=== PATIENT | female | born 1965 | race Caucasian/White ===

== ENCOUNTER 2025-04-05 12:59 | Outpatient (AMB) | payer OTHER, SELFPAY ==
--- NOTE | 2025-04-05 13:01 | MHC.PC.OV ---
Vital Signs 04/05/25 13:21 04/05/25 13:43 Height 5 ft 2 in Weight 142 lb 8 oz BMI 26.1 BP 139/80 130/84 Blood Pressure Location Rt brachial Lt brachial Position Sitting Sitting Respiration 16 Pulse 74 Pulse Source Pulse Oximeter Temp 98.7 F Temp Source Oral Pulse Oximetry (%) 98 Oxygen Delivery Method Room Air Intake Visit Reasons: est care/asthma Intake Note: patient here for new patient visit Pension Consultant Required: No Is last menstrual period known: No Post menopausal: No Patient : No Allergies sloan Allergy (Severe, Verified 04/05/25 13:34) Anaphylaxis MSG Allergy (Severe, Uncoded 04/05/25 13:34) Anaphylaxis Medication List - Last Reconciled 04/05/25 by Molly Zelaya CNP fluticasone furoate-vilanterol 100-25 mcg/dose (Breo Ellipta) 1 ea inhalation DAILY loratadine (Allergy Relief (loratadine)) 10 mg PO DAILY sertraline mg PO Tobacco use date assessed: 04/05/25 Dental Screening Dental Screen Date: 04/05/25 Did you have a dental visit in the last 12 months?: Yes Did you have a dental problem in the last 6 months where you did not have access to dental care?: No Was dental information given to patient?: Patient has dentist HPI HPI Comments History of Present Illness Details 59-year-old female presents to establish care. Prior PCP? - Dr. Martin, [facility], [place], [place] Last office visit/CPE/labs - 1.5 year ago Acute issue(s) - Anxiety, depression: Reports well controlled anxiety and depression. History of psychotherapy. Not currently followed by a therapist or psychiatrist - Myopia: She wears prescription glasses Past Medical History - Asthma, myopia, seasonal allergies, kidney stones, anxiety, depression Surgical History - Right ankle repair, right shoulder repair Family History - Dad: Hypertension, hyperlipidemia, cardiovascular disease, alcohol abuse - Mom: Breast cancer Social History - Nonsmoker. Does not vape. Drinks occasionally. Occasional cannabis gummy - Has been making healthy dietary choices. Walks frequently. Generally sleep well Health maintenance - Last eye exam was within the past years. She will sign a release for her PCP obtain her ophthalmology record - Last dental visit was less than a month ago - Last tetanus vaccine was in 2020. Record not available at this time - She notes that she is up-to-date on the shingles and pneumonia vaccines. Record not available at this time - Last pap smear test was in 2019: normal. Referred to [facility] investigator operator for a pap smear test - Last mammogram was in 2019: normal. Mammogram ordered - Last colonoscopy was a year and half ago at [facility]: Normal. Will request her recent colonoscopy record for review. Specialists - Dr. Cisneros, [facility] pulmonology [facility] Medical History (Updated 04/05/25 @ 14:08 by Molly Zelaya CNP) Depression Kidney stones Asthma Surgical History History of ankle surgery History of shoulder surgery Family History (Updated 04/05/25 @ 13:30 by Bekah Tinsley MA) Father Alcohol abuse High blood pressure High cholesterol Cardiovascular disease Mother Breast cancer Sister Asthma Social History (Updated 04/05/25 @ 13:20 by Bekah Tinsley MA) Housing: House Patient Tobacco Use Status: Never used Tobacco e-Cigarette/Vaping Use: Never Used Second Hand Smoke Exposure: No Substance Use Type: Marijuana service: No Current occupational status: employed 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 1. Little interest or pleasure in doing things: not at all 2. Feeling down, depressed, or hopeless: not at all 3. Trouble falling or staying asleep, or sleeping too much: not at all 4. Feeling tired or having little energy: not at all 5. Poor appetite or overeating: several days 6. Feeling bad about yourself - or that you are a failure or have let yourself or your family down: not at all 7. Trouble concentrating on things, such as reading the newspaper or watching television: not at all 8. Moving or speaking so slowly that other people could have noticed. Or the opposite - being so fidgety or restless that you have been moving around a lot more than usual: not at all 9. Thoughts that you would be better off or of hurting yourself in some way: not at all Total score: 1 Depression Screening Interpretation: Negative Depression Screening Done: Yes 93656 - PHQ-9 Billing: Yes Source: Developed by Khushbu Watson Kurt Kroenke and colleagues, with an educational junior from [employer]. Thrive Questionnaire Date Thrive assessed: 04/05/25 I am a: Patient What is your living situation today?: I have a steady place to live Within the past 12 months, did the food you bought not last and you didn't have the money to get more?: Never true Within the past 12 months, did you worry whether your food would run out before you got money to buy more?: Never true Do you have trouble paying for medicines?: No Do you have trouble getting transportation to medical appointments?: No Do you have trouble paying your heating and electricity bill?: No Do you have trouble taking care of your child, family member or friend?: No Do you have trouble with day-to-day activities such as bathing, preparing meals, shopping, managing finances, etc.?: No Are you currently unemployed and looking for a job?: No Are you interested in more education?: No Please select the resources that you would like help with: None Currently or been in a relationship where the following occur: No concerns reported THRIVE Score: 0 AUDIT C Alcohol Use Questionnaire (AUDIT-C) 1. How often do you have a drink containing alcohol?: Never 3. How often do you have six or more drinks on one occasion?: Never Total Score: 0 Score Reviewed/Action Taken: No ISMAEL-7 AMB Questionnaire ISMAEL-7 Date ISMAEL - 7 assessed: 04/05/25 Feeling nervous, anxious, or on edge: 0 = Not at all Not being able to stop or control worryin = Not at all Worrying too much about different things: 0 = Not at all Trouble relaxin = Not at all Being so restless that it is hard to sit still: 0 = Not at all Becoming easily annoyed or irritable: 0 = Not at all Feeling afraid as if something awful might happen: 0 = Not at all Total ISMAEL-7 score (0-4 normal; 5-9 mild; 10-14 moderate; 15-21 severe): 0 Source: Developed by Khushbu Watson Kurt Kroenke and colleagues, with an educational junior from [employer]. ISMAEL-7 Assessment Billing ISMAEL-7 Assessment Tool: ISMAEL-7 Assessment 31475 ACT Questionnaire In the past 4 weeks, how much of the time did your asthma keep you from getting as much done at work, school or at home?: A little of the time During the past 4 weeks, how often have you had shortness of breath?: Not at all During the past 4 weeks, how often did your asthma symptoms wake you up at night or earlier than usual in the morning?: Not at all During the past 4 weeks, how often have you had to use your rescue inhaler or nebulizer medication?: Not at all How would you rate your asthma control during the past 4 weeks?: Completely controlled ACT Interpretation: Negative Score: 24 Review of Systems Const Details: Denies chills, Denies fatigue, Denies fever(s), Denies headache(s) and Denies weakness HEENT Denies change in vision, Denies dizziness, Denies headache(s), Denies hearing loss, Denies nasal congestion, Denies sinus pain, Denies sinus pressure and Denies sore throat Card Denies chest pain, Denies lightheadedness, Denies dyspnea and Denies other (palpitations) Resp Denies cough, Denies dyspnea and Denies wheezing GI Denies abdominal pain, Denies melena, Denies hematochezia, Denies change in bowel habits, Denies dyspepsia and Denies nausea Denies hematuria and Denies dysuria Musc Denies abnormal gait, Denies myalgias, Denies arthralgias, Denies numbness and Denies tingling Skin/Breast Denies rash, Denies unusual bruising and Denies wounds Neuro Denies abnormal gait, Denies dizziness, Denies headache(s), Denies memory loss, Denies numbness, Denies Sensory deficit (Neuro), Denies tingling and Denies weakness Psych Denies anxiety, Denies depression and Denies memory loss Endo Denies cold intolerance, Denies fatigue, Denies heat intolerance, Denies polydipsia and Denies polyuria Amandeep/Lymph Denies easy bleeding and Denies easy bruising Aller/Immun Denies wheezing Physical exam (Primary Care) Vital Signs: Last Vital Signs Temp 98.7 F 04/05/25 13:21 Pulse 74 04/05/25 13:21 Resp 16 04/05/25 13:21 BP 130/84 04/05/25 13:43 Pulse Ox 98 04/05/25 13:21 Oxygen Delivery Method Room Air 04/05/25 13:21 BMI result Body Mass Index 26.1 Tobacco/Smoking Status: Tobacco use Status Tobacco use date assessed 04/05/25 04/05/25 13:30 Patient Tobacco Use Status Never used Tobacco 04/05/25 13:30 e-Cigarette/Vaping Use Never Used 04/05/25 13:30 PHQ-9: PHQ-9 Score PHQ-9: Total score 1 04/05/25 13:39 Depression Screening Interpretation: Negative Thrive Assessment: Date of Thrive Assessment Date Thrive assessed 04/05/25 04/05/25 13:02 Currently or been in a relationship where the following occur: No concerns reported Const Other: General: no acute distress, well developed, alert and awake Nutritional Appearance: well nourished Orientation/consciousness: patient oriented x3 HENMT Head: Yes normocephalic and Yes atraumatic Ears: hearing grossly normal bilaterally and TM's normal bilaterally General nose exam: Normal external nose present and Normal nares present Mouth: Normal oral and palatal mucosa present and moist mucous membranes Teeth and gingiva: dentition normal Throat: Yes oropharynx normal Eyes Pupils: Equal, round and reactive pupils present and Pupil accommodation reflex normal EOM: EOMs intact bilaterally Neck Neck: Yes normal visual inspection, Yes no lymphadenopathy and Yes trachea midline Thyroid: Thyroid normal Carotids: no bruits Lymphatic: no lymphadenopathy noted Chest Chest palpation & inspection: normal inspection of the chest Resp Effort & Inspection: normal respiratory effort Auscultation: clear to auscultation bilaterally Cardio Rate: regular rate Rhythm: regular rhythm Heart sounds: S1 normal heart sound present, S2 normal heart sound present, no gallops, no murmurs and no rubs Bruits: no abdominal aortic bruits and no carotid bruits GI Palpation (GI): No Abdominal aortic bruit present, Soft to palpation, nontender, No hepatosplenomegaly present and No Rebound tenderness present Auscultation: normal bowel sounds General: Yes no CVA tenderness Back/Spine/Pelvis Back: no CVA tenderness Cervical Spine: cervical ROM normal and No Cervical spine tenderness Thoracic/Lumbar Spine: thoraco-lumbar ROM normal, No pain with thoraco-lumbar ROM, No thoracic spinal tenderness and No lumbar spinal tenderness Skin General: warm and dry. Normal skin color. Normal skin turgor Lesions: no lesions Rashes: no rashes Trauma: no lacerations or abrasions Wounds: no wounds Nails: normal Neuro General: patient oriented x3, gait normal and CN's II-XI intact bilaterally Cranial nerves: Yes Equal, round and reactive pupils present Cognition (Neuro): normal cognition Gait exam (Neuro): Normal gait present Motor exam (neuro): 5/5 motor strength present throughout Sensory Exam: No Sensory deficit (Neuro) Deep tendon reflexes (DTR's): Right patellar reflex intensity grade: 2+ and Left patellar reflex intensity grade: 2+ Extrem General: Yes normal to inspection, No edema and No calf tenderness Psych Appearance: grossly normal Affect: normal affect Attitude: cooperative Thought process: Normal thought process present Coding Level of Care Code New Pt Prev Care >65yr (77206) Diagnoses Normal physical examination, routine Z00.00 Asthma J45.909 Anxiety and depression F41.9; F32.A Pap smear for cervical cancer screening Z12.4 Laboratory tests ordered as part of a complete physical exam (CPE) Z00.00 Additional Codes Asthma Control Questionnaire - ACT Interpretation: Negative ([id number]) ISMAEL-7 Assessment Billing - ISMAEL-7 Assessment Tool: ISMAEL-7 Assessment 99159 ([id number]) PHQ-9 - 14091 - PHQ-9 Billing: Yes ([id number]) Assessment & Plan Assessment & Plan (1) Normal physical examination, routine: Code(s): Z00.00 - Encounter for general adult medical examination without abnormal findings Category: Medical Plan: No significant functional limitation noted. Continue current treatment regimen. Healthy diet and routine exercise encouraged. Perform lab work and follow-up for telehealth visit for labs review in 2-3 weeks. Return sooner with symptoms or concerns. Verbalized understanding and agreed with the plan. (2) Asthma: Code(s): J45.909 - Unspecified asthma, uncomplicated Category: Medical Plan: Well-controlled asthma. ACT score is 24. Continue current treatment regimen. Follow-up with pulmonology as planned. (3) Anxiety and depression: Code(s): F41.9 - Anxiety disorder, unspecified; F32.A - Depression, unspecified Category: Medical Plan: Controlled anxiety and depressive symptoms. Continue to take sertraline 100 mg daily as prescribed. Routine exercise encouraged. Follow-up with symptoms or concerns. Verbalized understanding and agreed with the plan. (4) Pap smear for cervical cancer screening: Code(s): Z12.4 - Encounter for screening for malignant neoplasm of cervix Category: Medical Plan: Last pap smear test was in 2019: normal. Referred to [facility] investigator operator for a pap smear test. (5) Laboratory tests ordered as part of a complete physical exam (CPE): Code(s): Z00.00 - Encounter for general adult medical examination without abnormal findings Category: Medical Plan: Fasting labs ordered as part of a complete physical exam. Advised to fast for at least 10 hours before getting labs drawn. May drink water Verbalized understanding and agreed with treatment plan. Orders: Orders Complete Blood Count Auto Diff Today Z00.00 - Encounter for general adult medical examination without abnormal findings Lipid Panel Today Z00.00 - Encounter for general adult medical examination without abnormal findings TSH reflex Free T4 Today Z00.00 - Encounter for general adult medical examination without abnormal findings UA CC w/rflx Micro + Cult Today Z00.00 - Encounter for general adult medical examination without abnormal findings Vitamin D 25-OH Total Today Z00.00 - Encounter for general adult medical examination without abnormal findings Comprehensive [place]. Panel Fast Today Z00.00 - Encounter for general adult medical examination without abnormal findings Microalbumin, Random (w Creat) Today Z00.00 - Encounter for general adult medical examination without abnormal findings MM screening mammo BI Today Z12.31 - Encounter for screening mammogram for malignant neoplasm of breast Referrals [facility] [place] Referral Z12.4 - Encounter for screening for malignant neoplasm of cervix
[2025-04-05 13:21] VITALS: BP 139/80; PULSE 74; RESP 16; TEMP 37.1; O2SAT 98; BMI 26.1
[2025-04-05 13:43] VITALS: BP 130/84
--- OUTSIDE RECORDS SUMMARY | 2025-04-05 14:20 | XMS_ITS | Clinical Summary ---
Author Organization [facility] ity Address [address] [place] [address] Care Team Providers Care Outside Event Sales Specialist Name Role Phone Juan Ramon Nath MD Primary Care Provider [phone] Social History Tobacco Use Types Packs/Day Years Used Date Smoking Tobacco: Never Assessed Comments Unknown Sex and Gender Information Value Date Recorded Sex Assigned at Not on file Legal Sex Female 10:45 AM EST Gender Identity Not on file Sexual Orientation Not on file Plan of Treatment Health Maintenance Due Date Last Done Comments Breast Cancer Screening 1965 DTaP,Tdap,and Td Vaccines (1 - Tdap) 1982 Cervical Cancer Screening: P ap Smear 1984 Pneumococcal Vaccine: 50+ Ye ars (1 of 1 - PCV) 2013 Zoster Vaccines (1 of 2) 2013 COVID-19 Vaccine ( - 2023-2 5 season) 2024 Influenza Vaccine (Season Ended) 2025 RSV Immunization Adult Patie nts (1 - 1-dose 75+ series) 2038 HIB Vaccines Aged Out No longer eligi ble based on patient's age to complete this topic HPV Vaccines Aged Out No longer eligi ble based on patient's age to complete this topic Hepatitis A Vaccines Aged Out No long er eligible based on patient's age to complete this topic Hepatitis B Vaccines Aged Out No long er eligible based on patient's age to complete this topic IPV Vaccines Aged Out No longer eligi ble based on patient's age to complete this topic MMR Vaccines Aged Out No longer eligi ble based on patient's age to complete this topic Meningococcal ACWY Vaccine Aged Out N o longer eligible based on patient's age to complete this topic Meningococcal B Vaccine Aged Out No l onger eligible based on patient's age to complete this topic Pneumococcal Vaccine: Pediat rics (0 to 5 Years) and At-Risk Patients (6 to 64 Years) Aged Out No longer eligible b ased on patient's age to complete this topic RSV Immunization Patients Un carolyn 20 months Aged Out No longer eligible b ased on patient's age to complete this topic Varicella Vaccines Aged Out No longer eligible based on patient's age to complete this topic Care Teams Outside Event Sales Specialist Relationship Specialty Start Date End Date Juan Ramon Nath MD [address] [place] [phone] PCP - General Family Medicine 07/02/17
--- OUTSIDE RECORDS SUMMARY | 2025-04-05 14:20 | XMS_ITS | Data Portability ---
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 Plan of Treatment Reminders Order Date Submit Date Provider Last Modified By Organization Details Last Modified Time Details Appointments None recorded. Lab culture, urine 2018 019 [facility], [address] [place], [address] 9 10:05:04 urinalysis , complete 2018 019 [facility], [address] [place], [address] 9 07:09:05 urinalysis , dipstick 2018 019 [email or web address] 6 In-Office Order, Internal Use Only DO Not Attach Compendium DO Not Attach Compendium, Do Not Delete/merge, [id number] 9 10:52:45 urinalysis , dipstick 2017 018 [email or web address] 6 In-Office Order, Internal Use Only DO Not Attach Compendium DO Not Attach Compendium, Do Not Delete/merge, [id number] 8 11:10:19 urinalysis , dipstick 2016 017 [email or web address] 6 In-Office Order, Internal Use Only DO Not Attach Compendium DO Not Attach Compendium, Do Not Delete/merge, [id number] 10:24:54 pap, IG + HPV 2016 017 [facility], [address] [facility], [place], [address] 7 06:50:37 urinalysis , dipstick 2015 016 DBA_PATCH_ [id number] In-Office Order, Internal Use Only DO Not Attach Compendium DO Not Attach Compendium, Do Not Delete/merge, [id number] 6 04:22:07 bacterial vaginosis + vaginitis panel, vaginal 2014 015 [place] Not available 5 20:26:10 urinalysis , dipstick 2014 015 [email or web address] 6 In-Office Order, Internal Use Only DO Not Attach Compendium DO Not Attach Compendium, Do Not Delete/merge, [id number] 5 10:02:07 Referral None recorded. Procedures None recorded. Surgeries None recorded. Imaging bone density 2018 019 [facility]), [address] [place], [address], 9 08:35:13 MAMMO, screening, digital, bilateral, w/ CAD 2018 019 [facility]), [address] [place], [address], 9 13:24:47 MAMMO, screening, digital, bilateral, w/ CAD 2017 018 [facility]), [address] [place], [address], 8 14:46:29 D[facility]A, axial skeleton 2017 [email or web address] [address] [place], [address], 8 13:05:21 MAMMO, screening, digital, bilateral, w/ CAD - Reflex u/s for dense breasts 2015 016 DBA_PATCH_ [id number] [facility]), [address] [place], [address], 6 04:22:07 DEXA, axial skeleton 2015 016 DBA_PATCH_ [id number] [facility]), [address] [place], [address], 6 04:22:07 MAMMO, screening, digital, bilateral 2014 015 [email or web address] [facility] (Radiology), [address] [place], [address], 5 10:50:18 Medication Orders Estrace 0.01% (0.1 mg/gram) vaginal cream [address] [email or web address][id number], [address] [place], [address], 9 10:42:04 Vagifem 10 mcg vaginal tablet 2014 [id number], [address] [place], [address], 9 10:41:56 Patient TargetsNo targets recorded. Patient Instructions Encounter Date Encounter Id Patient Instructions Last Modified By Organization Details Last Modified Time 12/25/2017 [id number] mammogram: about this test Not available 12/25/2017 11:10:19 tips to help you stay healthy [email or web address] Not available 12/25/2017 11:10:19 Reason for Referral None Reported. Results Created Date Observation Date Name Description Value Unit Range Abnormal Flag Note LastModifiedBy Organization Detail LastModifiedTime 09/18/2009/18/2019 urmyles lysis , dipst ick Interpretati on positi ve Not Available In-Office Order Internal Use Only DO Not Attach Compendium DO Not Attach Compendium, Do Not Delete/merge, [id number] 09/18/2019 10:49:07 09/18/2009/18/2019 urina lysis , dipst ick Leukocytes Negati ve Not Available In-Office Order Internal Use Only DO Not Attach Compendium DO Not Attach Compendium, Do Not Delete/merge, [id number] 09/18/2019 10:49:07 09/18/20 19 09/18/2019 urina lysis , dipst ick Protein Trace Not Available In-Office Order Internal Use Only DO Not Attach Compendium DO Not Attach Compendium, Do Not Delete/merge, [id number] 09/18/2019 10:49:07 09/18/20 19 09/18/2019 urina lysis , dipst ick Blood Small: +1 Not Available In-Office Order Internal Use Only DO Not Attach Compendium DO Not Attach Compendium, Do Not Delete/merge, [id number] 09/18/2019 10:49:07 12/25/19 18 12/25/2017 urina lysis , dipst ick Interpretati on negati ve Not Available In-Office Order Internal Use Only DO Not Attach Compendium DO Not Attach Compendium, Do Not Delete/merge, [id number] 12/25/2017 11:00:11 12/18/19 17 12/18/2016 urina lysis , dipst ick Interpretati on negati ve Not Available In-Office Order Internal Use Only DO Not Attach Compendium DO Not Attach Compendium, Do Not Delete/merge, [id number] 12/18/2016 08:36:53 10/09/20 16 10/09/2016 urina lysis , dipst ick Interpretati on negati ve Not Available In-Office Order Internal Use Only DO Not Attach Compendium DO Not Attach Compendium, Do Not Delete/merge, [id number] 10/09/2016 09:28:08 05/20/20 15 05/20/2015 urina lysis , dipst ick Interpretati on negati ve Not Available In-Office Order Internal Use Only DO Not Attach Compendium DO Not Attach Compendium, Do Not Delete/merge, [id number] 05/20/2015 08:54:35 05/20/20 15 05/20/2015 urina lysis , dipst ick Leukocytes Negati ve Not Available In-Office Order Internal Use Only DO Not Attach Compendium DO Not Attach Compendium, Do Not Delete/merge, [id number] 05/20/2015 08:54:35 05/20/2005/20/2015 urina lysis , dipst ick Nitrite negati ve Not Available In-Office Order Internal Use Only DO Not Attach Compendium DO Not Attach Compendium, Do Not Delete/merge, 05/20/2015 08:54:35 05/20/2005/20/2015 urina lysis , dipst ick Urobilinogen Normal : 0.2 mg/dl Not Available In-Office Order Internal Use Only DO Not Attach Compendium DO Not Attach Compendium, Do Not Delete/merge, 05/20/2015 08:54:35 05/20/2005/20/2015 urina lysis , dipst ick Protein Negati ve Not Available In-Office Order Internal Use Only DO Not Attach Compendium DO Not Attach Compendium, Do Not Delete/merge, 05/20/2015 08:54:35 05/20/2005/20/2015 urina lysis , dipst ick pH 6.0 Not Available In-Office Order Internal Use Only DO Not Attach Compendium DO Not Attach Compendium, Do Not Delete/merge, 05/20/2015 08:54:35 05/20/2005/20/2015 urina lysis , dipst ick Blood Negati ve Not Available In-Office Order Internal Use Only DO Not Attach Compendium DO Not Attach Compendium, Do Not Delete/merge, 05/20/2015 08:54:35 05/20/2005/20/2015 urina lysis , dipst ick Ketone Negati ve Not Available In-Office Order Internal Use Only DO Not Attach Compendium DO Not Attach Compendium, Do Not Delete/merge, 05/20/2015 08:54:35 05/20/2005/20/2015 urina lysis , dipst ick Bilirubin Negati ve Not Available In-Office Order Internal Use Only DO Not Attach Compendium DO Not Attach Compendium, Do Not Delete/merge, 05/20/2015 08:54:35 05/20/2005/20/2015 urina lysis , dipst ick Glucose Negati ve Not Available In-Office Order Internal Use Only DO Not Attach Compendium DO Not Attach Compendium, Do Not Delete/merge, [id number] 05/20/2015 08:54:35 05/20/20 15 05/20/2015 urina lysis , dipst ick Appearance Clear Not Available In-Offi ce Order Internal Use Only DO Not Attach Compendium DO Not Attach Compendium, Do Not Delete/merge, 05/20/2015 08:54:35 05/20/20 15 05/20/2015 urina lysis , dipst ick Color Yellow Not Available In-Office Order Internal Use Only DO Not Attach Compendium DO Not Attach Compendium, Do Not Delete/merge, 05/20/2015 08:54:35 05/20/20 15 05/22/2015 bacte rial vagin osis + vagin itis panel , vagin al trichomonas vaginalis DNA Negati ve negati ve Not Available [facility] [address] [place], [address], 05/22/2015 20:26:10 05/20/20 15 05/22/2015 bacte rial vagin osis + vagin itis panel , vagin al gardnerella vaginalis DNA Positi ve negati ve abnormal Not Available [facility] [address] [place], [address], 05/22/2015 20:26:10 05/20/20 15 05/22/2015 bacte rial vagin osis + vagin itis panel , vagin al vicki species DNA Positi ve negati ve abnormal Not Available [facility] [address] [place], [address], 05/22/2015 20:26:10 12/18/19 17 12/21/2016 pap, IG + HPV report THINP REP TIS PAP AND HPV mRNA E6/E7 REFLE X HPV 16,18 /45 Lab: NL1 [facility] MATMARTHA N: none given LMP: SKEIN DYER prev. Pap: NONE GIVEN prev. Bx: NONE GIVEN SOURC E: Cervi x, Endoc ervix STATE MENT OF ADEQU ACY: SATIS FACTO RY FOR EVALU ATION INTER PRETA TION/ RESUL T: Negat dayami for intra epith elial lesio n or malvy corby . Atrop josé miguel contreras rn; predo minan tly parab carina cells COMME NT: This Pap test has been evalu ated with compu ter bhargav margaret techn ology . CYTOT ECHNO LOGIS T: [place], CT( CP) CT scree srikanth locat ion: [facility] [address] [address] [address]a ct [facility] Clien t Servi darling at [phone] Lab: NL1 HPV mRNA E6/E7 REFLE X HPV 16, 18/45 HPV mRNA E6/E7 Not Detec margaret Refer ence Range : Not Detec margaret This test was perfo rmed using the APTIM A HPV Assay ([employer] . This assay detec ts E6/E7 viral messe nger RNA (mRNA ) from 14 high- risk HPV types (16,1 8,31, 33,35 ,39,4 5,51, 52,56 ,58,5 9,66, 68). THINP REP TIS PAP AND HPV mRNA E6/E7 REFLE X HPV 16,18 /45 PERFO RMING SITE: NL1 [facility] [address] ,[place] [address] Labor atory Direc tor: JULIÁN GAMING MD , CLIA: [id number] Not Available [facility] [address] [place], [address] 12/21/2016 06:50:37 09/18/2009/19/2019 urina lysis , compl ete color YELLOW yellow normal Not Available [facility] [address] [place], [address] 09/19/2019 07:09:04 09/18/2009/19/2019 urina lysis , compl ete appearance CLEAR clear normal Not Available [facility] [address] [place], [address] 09/19/2019 07:09:04 09/18/2009/19/2019 urina lysis , compl ete specific gravity 1.019 1.001- 1.035 normal Not Available [facility] [address] [place], [address] 09/19/2019 07:09:04 09/18/2009/19/2019 urina lysis , compl ete pH < OR = 5.0 5.0-8. 0 normal Not Available [facility] [address] [place], [address] 09/19/2019 07:09:04 09/18/2009/19/2019 urina lysis , compl ete glucose NEGATI VE negati ve normal Not Available [facility] [address] [place], [address] 09/19/2019 07:09:04 09/18/2009/19/2019 urina lysis , compl ete bilirubin NEGATI VE negati ve normal Not Available [facility] [address] [place], [address] 09/19/2019 07:09:04 09/18/2009/19/2019 urina lysis , compl ete ketones NEGATI VE negati ve normal Not Available [facility] [address] [place], [address] 09/19/2019 07:09:04 09/18/2009/19/2019 urina lysis , compl ete occult blood TRACE negati ve abnormal Not Available [facility] [address] [place], [address] 09/19/2019 07:09:04 09/18/2009/19/2019 urina lysis , compl ete protein NEGATI VE negati ve normal Not Available [facility] [address] [place], [address] 09/19/2019 07:09:04 09/18/2009/19/2019 urina lysis , compl ete nitrite NEGATI VE negati ve normal Not Available [facility] [address] [place], [address] 09/19/2019 07:09:04 09/18/2009/19/2019 urina lysis , compl ete leukocyte esterase NEGATI VE negati ve normal Not Available [facility] [address] [place] [address], [address] 09/19/2019 07:09:04 09/18/2009/19/2019 urina lysis , compl ete WBC NONE SEEN /hpf < or = 5 normal Not Available [facility] [address] [place] [address], [address] 09/19/2019 07:09:04 09/18/2009/19/2019 urina lysis , compl ete RBC 0-2 /hpf < or = 2 normal Not Available [facility] [address] [place] [address], [address] 09/19/2019 07:09:04 09/18/2009/19/2019 urina lysis , compl ete squamous epithelial cells NONE SEEN /hpf < or = 5 normal Not Available [facility] [address] [place] [address], [address] 09/19/2019 07:09:04 09/18/2009/19/2019 urina lysis , compl ete bacteria NONE SEEN /hpf none seen normal Not Available [facility] [address] [place] [address], [address] 09/19/2019 07:09:04 09/18/2009/19/2019 urina lysis , compl ete hyaline cast NONE SEEN /lpf none seen normal Not Available [facility] [address] [place] [address], [address] 09/19/2019 07:09:04 09/18/2009/18/2019 cultu re, urine urine source URINE, CLEAN CATCH Not Available [facility] [address] [place] [address], [address] 09/20/2019 10:05:04 09/18/2009/18/2019 cultu re, urine micro culture result Gram positi ve coryne form bacill us (Bernie te 1) abnormal Not Available [facility] [address] [place] [address], [address] 09/20/2019 10:05:04 09/18/2009/18/2019 cultu re, urine colony count 10,000 col/mL (Bernie te 1) Not Available [facility] [address] [place] [address], [address] 09/20/2019 10:05:04 10/15/20 19 10/16/2019 urina lysis , compl ete color YELLOW yellow normal Not Available [facility] [place] [facility] [address], [place], [address], 10/16/2019 04:44:03 10/15/20 19 10/16/2019 urina lysis , compl ete appearance CLEAR clear normal Not Available [facility] [place] [facility] [address], [place], [address], 10/16/2019 04:44:03 10/15/2010/16/2019 urina lysis , compl ete specific gravity 1.022 1.001- 1.035 normal Not Available [facility] [place] [facility] [address], [place], [address], 10/16/2019 04:44:03 10/15/2010/16/2019 urina lysis , compl ete pH 5.5 5.0-8. 0 normal Not Available [facility] [place] [facility] [address], [place], [address], 10/16/2019 04:44:03 10/15/20 19 10/16/2019 urina lysis , compl ete glucose NEGATI VE negati ve normal Not Available [facility] [place] [facility] [address], [place], [address], 10/16/2019 04:44:03 10/15/2010/16/2019 urina lysis , compl ete bilirubin NEGATI VE negati ve normal Not Available [facility] [place] [facility] [address], [place], [address], 10/16/2019 04:44:03 10/15/2010/16/2019 urina lysis , compl ete ketones NEGATI VE negati ve normal Not Available [facility] [place] [facility] [address], [place], [address], 10/16/2019 04:44:03 10/15/2010/16/2019 urina lysis , compl ete occult blood NEGATI VE negati ve normal Not Available [facility] [place] [facility] [address], [place], [address], 10/16/2019 04:44:03 10/15/2010/16/2019 urina lysis , compl ete protein NEGATI VE negati ve normal Not Available [facility] [place] [facility] [address], [place], [address], 10/16/2019 04:44:03 10/15/2010/16/2019 urina lysis , compl ete nitrite NEGATI VE negati ve normal Not Available [facility] [place] [facility] [address], [place], [address], 10/16/2019 04:44:03 10/15/2010/16/2019 urina lysis , compl ete leukocyte esterase NEGATI VE negati ve normal Not Available [facility] [place] [facility] [address], [place], [address], 10/16/2019 04:44:03 10/15/20 19 10/16/2019 urina lysis , compl ete WBC NONE SEEN /hpf < or = 5 normal Not Available [facility] [place] [facility] [address], [place], [address], 10/16/2019 04:44:03 10/15/2010/16/2019 urina lysis , compl ete RBC NONE SEEN /hpf < or = 2 normal Not Available [facility] [place] [facility] [address], [place], [address], 10/16/2019 04:44:03 10/15/20 19 10/16/2019 urina lysis , compl ete squamous epithelial cells NONE SEEN /hpf < or = 5 normal Not Available [facility] [place] [facility] [address], [place], [address], 10/16/2019 04:44:03 10/15/20 19 10/16/2019 urina lysis , compl ete bacteria NONE SEEN /hpf none seen normal Not Available [facility] [place] [facility] [address], [place], [address], 10/16/2019 04:44:03 10/15/20 19 10/16/2019 urina lysis , compl ete hyaline cast NONE SEEN /lpf none seen normal Not Available [facility] [place] [facility] [address], [place], [address], 10/16/2019 04:44:03 10/15/20 19 10/15/2019 cultu re, urine urine source URINE, CLEAN CATCH Not Available [facility] [address] [place], [address] 10/17/2019 11:22:24 10/15/20 19 10/15/2019 cultu re, urine micro culture result abnormal Multi ple bacte rial morph otype s 10,00 0 colon ies/m L prese nt. No furth er ident ifica tion will be perfo rmed. Not Available [facility] [address] [place], [address] 10/17/2019 11:22:24 01/15/20 18 01/06/2018 MAMMO , scree srikanth, digit al, bilat eral, w/ CAD No observ ation record ed. [address]) [address] [place], [address], 09/18/2019 10:54:13 10/06/20 19 10/06/2019 MAMMO , scree srikanth, digit al, bilat eral, w/ CAD No observ ation record ed. [address]) [address] [place], [address], 10/07/2019 13:41:01 10/08/20 19 10/06/2019 bone densi ty No observ ation record ed. [email or web address] [facility] [address] [facility], [place], [address], 10/19/2019 10:21:07 Result Notes None recorded. Problems Name Problem SNOMED Code Status Onset Date Resolution Date Notes Provider Name and Address Organization Details Recorded Time Depressive disorder 08362874 Active 2016 Lois Garza null, [facility] 7 08:29:45 Asthma 760169738 Completed 201307/04/2016 Rosana Barajas null, [facility] 6 14:57:20 Depressive disorder 83311065 Completed 201307/04/2016 Lois Garza null, [facility] 7 08:29:45 Dyspareunia [id number] Completed 07/04/2016 Emse vania Mccoyjake null, [facility] 6 14:57:20 Problem Notes None recorded. Procedures Surgical History Date Name Laterality Status Provider Name and Address Organization Details Recorded Time 9 Date of Last Mammogram completed Harshil Calderon [facility] 06/08/2019 07:34:39 8 [id number] completed Alana Kim [facility] 12/25/2017 11:08:20 7 Date of Last Pap Smear completed Alana Kim [facility] 12/25/2017 07:02:28 5 [id number] completed TIMA CORRAL DO 175 [facility], [address] [place] [address], [phone], [facility] 05/20/2015 09:11:52 5 [id number] completed TIMA CORRAL DO 175 [facility], [address] [place] [address], [phone], [facility] 05/20/2015 09:11:52 5 [id number] completed TIMA Safia CORRAL, DO 175 [facility], [address] Floor, [place], [address], [place] - [facility] 05/20/2015 09:11:52 0 Date of Last Colonoscopy completed Alana Uriasifrah CT - [facility] 05/20/2015 08:49:20 Other completed Shavon Barajas CT - [facility] 05/19/2015 09:51:59 Imaging Results Imaging Date Name Status LastModified by Organiz ation Details LastModified Time 01/06/2018 MAMMO, screening, digital, bilateral, w/ CAD completed [address]) [address] [place] [address], [address], 09/18/2019 10:54:13 10/06/2019 MAMMO, screening, digital, bilateral, w/ CAD completed [address]) [address] [place] [address], [address], 10/07/2019 13:41:01 10/06/2019 bone density completed [email or web address] [facility] [address] [place], [address], 10/19/2019 10:21:07 Procedure Notes None recorded. Medical Equipment None Reported. Allergies Allergen ID Allergen Name Allergen Category Reaction Reaction Severity Criticality Documentation Date Start Date Code Code System Note Provider Name and Address Organization Details Recorded Time [id number] sloan allergeni c extract food,medi cation Not available Not available Not available 09/18/2019 34718 1 RxNorm Antionette martins, [place] - [facility] 9 10:41:30 120634 No known allergy (situatio n) Not available Not available Not available Not available 05/10/20152013 88963 6003 SNOMED Not Available [facility] 5 09:53:03 Medications Name Sig Start Date Stop Date Status Note LastModified by Organization Details LastModified Time bupropion HCl SR 150 mg tablet,12 hr sustained -release 12/18 completed Not Available Not Available Not Available azithromy sameer 250 mg tablet 12/18 completed Not Available Not Available Not Available fluconazo le 150 mg tablet Take 1 tablet every day by oral route for 1 day. 12/18 completed Not Available Not Available Not Available prazosin 1 mg capsule 12/25 completed Not Available Not Available Not Available prednison e 20 mg tablet 12/25 completed Not Available Not Available Not Available clonazepa m 0.5 mg tablet 12/18 completed Not Available Not Available Not Available sertralin e 100 mg tablet active Not Available Not Available Not Available Cleocin 100 mg vaginal supposito ry Insert 1 supposit ory every day by vaginal route for 3 days. 12/18 completed Not Available Not Available Not Available clonazepa m 1 mg tablet active Not Available Not Available Not Available cyanocoba armando (vit B-12) 1,000 mcg tablet active Not Available Not Available Not Available alprazola m 0.25 mg tablet 09/18 completed Not Available Not Available Not Available ciproflox acin 0.3 % eye drops 12/25 completed Not Available Not Available Not Available erythromy sameer 5 mg/gram (0.5 %) eye ointment 12/25 completed Not Available Not Available Not Available Loestrin 20 (21) 1 mg-20 mcg tablet TAKE 1 TABLET BY ORAL ROUTE EVERY DAY 03/25 completed PRESCRIB ED ELSEWHER E Not Available Not Available Not Available Wellbutri n 75 mg tablet TAKE 1 TABLET BY ORAL ROUTE 3 TIMES EVERY DAY active PRESCRIB ED ELSEWHER E Not Available Not Available Not Available sertralin e 25 mg tablet 12/18 completed Not Available Not Available Not Available fluticaso ne propionat e 50 mcg/actua tion nasal spray,chanel pension 09/18 completed Not Available Not Available Not Available sertralin e 50 mg tablet 12/18 completed Not Available Not Available Not Available hydroxyzi ne pamoate 25 mg capsule 12/25 completed Not Available Not Available Not Available Bactrim DS 800 mg-160 mg tablet Take 1 tablet every 12 hours by oral route for 3 days. 2018 active Not Available Not Available Not Avai lable Estrace 0.01% (0.1 mg/gram) vaginal cream Insert 1 g twice a week by vaginal route. 09/18 completed Not Available Not Available Not Available escitalop lazaro 10 mg tablet TAKE 1 TABLET BY ORAL ROUTE EVERY DAY 12/18 completed Not Available Not Available Not Available escitalop lazaro 20 mg tablet 12/25 completed Not Available Not Available Not Available Lexapro 5 mg/5 mL oral solution TAKE 10 MILLILIT ER BY ORAL ROUTE EVERY DAY 03/25 completed PRESCRIB ED ELSEWHER E Not Available Not Available Not Available Singulair 4 mg oral granules in packet 03/25 completed PRESCRIB ED ELSEWHER E Not Available Not Available Not Available bupropion HCl XL 300 mg 24 hr tablet, extended release 09/18 completed Not Available Not Available Not Available bupropion HCl XL 150 mg 24 hr tablet, extended release 12/25 completed Not Available Not Available Not Available Calcium 500 + D active Not Available Not Available Not Available ProAir HFA 90 mcg/actua tion aerosol inhaler active Not Available Not Available Not Available Eye Itch Relief 0.025 % (0.035 %) drops 12/25 completed Not Available Not Available Not Available Vagifem 10 mcg vaginal tablet 1 tab per vagina 2 x weekly 09/18 completed Not Available Not Available Not Available Zyrtec 10 mg capsule TAKE BY ORAL ROUTE 2013 active PRESCRIB ED ELSEWHER E Not Available Not Available Not Available Vitals Date Recorded Body height Body mass index (BMI) Body weight Systolic blood pressure Diastolic blood pressure Provider Name and Address Organization Details Last Updated DateTime 05/20/2015 157.48 cm 30.7 kg/m2 64062.51 816 g 104 mm[Hg] 66 mm[Hg] Alana Kim [facility] 5 08:52:27 Date Recorded Body height Systolic blood pressure Diastolic blood pressure Provider Name and Address Organization Details Last Updated DateTime 10/09/2016 157.48 cm 116 mm[Hg] 80 mm[Hg] Lois Garza [facility] 10/09/2016 09:36:26 Date Recorded Body height Body weight Body mass index (BMI) Systolic blood pressure Diastolic blood pressure Provider Name and Address Organization Details Last Updated DateTime 12/18/2016 157.48 cm 69682.22 g 28.2 kg/m2 110 mm[Hg] 80 mm[Hg] Lois Tatumwler [facility] 7 08:31:33 Date Recorded Body height Body mass index (BMI) Body weight Systolic blood pressure Diastolic blood pressure Provider Name and Address Organization Details Last Updated DateTime 12/25/2017 157.48 cm 29.6 kg/m2 41917.96 g 110 mm[Hg] 76 mm[Hg] Alana Judy [facility] 8 11:03:42 Date Recorded Body height Body mass index (BMI) Body weight Provider Name and Address Organization Details Last Updated DateTime 09/18/2019 157.48 cm 30.5 kg/m2 28759.93 g Antionette Robles [facility] 09/18/2019 10:41:14 Social History Question Answer Notes LastModified by Organizat ion Details LastModified Time Tobacco Smoking Status Never Smoker Alana Kim [facility] 05/20/2015 08:49:19 What Is Your Level Of Alcohol Consumption? Occasional Information not available 05/20/2015 Do You Have Any Children? No Information not available 10/08/2016 Does Your Partner Physically Hurt You Or Threaten To Hurt You? No Information not available 12/25/2017 Has Your Partner Forced You To Have Sex Or Perform Sex Acts When You Did Not Want To? No Information not available 12/25/2017 Does Your Partner Insult, Scream At Or Talk Down To You? No Information not available 12/25/2017 Does Your Partner Control You Or Any Part Of Your Life? No Information not available 12/25/2017 Are You Afraid Of Your Partner? No Information not available 12/25/2017 Drug Use? No Information no t available 05/20/2015 Do You Feel Safe At Home? Yes Information not available 05/20/2015 What Was The Date Of Your Most Recent Tobacco Screening? 12/25/2017 Information not available 06/24/2019 How Many Children Do You Have? 0 Information not available 10/08/2016 Do You Use Protection During Sex? No Information not available 10/08/2016 How Much Tobacco Do You Smoke? No Information not available 10/08/2016 Sex: Unknown Functional Status Question Answer Note LastModified by Organizat ion Details LastModified Time What is your exercise level? Moderate 2-3x weekly Information not available 05/20/2015 Mental Status None recorded. Family History Relationship Description Onset Age of this Age Resolved Age Notes LastModified by Organization Details LastModified Time Father Disorder of cardiovascul ar system [email or web address] Not available 05/02 10:02:58 Father Carcinoma of prostate Not available 05/02 10:02:58 Mother Malignant tumor of breast 44 [email or web address] Not available 05/02 10:02:58 Sister Suspected brain tumor Benign Inoper Brain tumor [email or web address] Not available 05/20/2015 10:02:58 Medical History Condition Response Spina Bifida N HIV N Heart Problems N Sexual Dysfunction N *No Diseases or Conditions N Breast Cancer N Blood clots N Autoimmune disorder N Benign breast disease N Thyroid Problems N Kidney or Bladder Problems N Colon cancer N GI Problems N Depression Y Lung Disease N Defects or Inherited Disease N Eating Disorder N Anemia N Multiple Sclerosis N Anesthesia Complications N Headaches/Migraines N Psychiatric Illness N Anxiety Disorder Y Diabetes N Blood Transfusions N Arthritis N HSV N Bladder disease N Infertility N Interstitial Cystitis N Abnormal pap N Abnormal Uterine Bleeding N Acid Reflux (GERD) N Hyperlipidemia N Cancer N BrCa positive N Stroke N Diverticulitis N Abuse/Domestic Violence N Asthma Y Hepatitis N Fibromyalgia N Hypertension N Osteoporosis N Thrombophilias N Gynecological History Statement/Question Response Benign Breast Disease N Flow Date of Last Mammogram 03/20/2019 Date of LMP Breast Biopsy N IPV Screen Done 09/18/2019 [facility] Biopsy N Post Menopausal Bleeding N STIs/STDs N PID N Cervical Cancer N History of Endometrial Biopsy? N If Post Menopausal, Age at Menopause 46 Ovarian Cancer N Date of Last Colonoscopy 12/02/2009 Breast Cancer N Date of last DEXA Bladder Problems N Abnormal Uterine Bleeding N Last HPV Result Negative Abnormal Pap N BrCa Positive N Infertility N Breast Ultrasound N Leep N HPV Vaccine N Duration of Flow (days) Endometriosis N Age at Menarche 11 Current Control Method Menopause Fibroids N Uterine Cancer N Current Control Method Menopause Frequency of Cycle (Q days) Sexually Active? Y Sexual Problems? 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 Pap deferred. Reviewed self breast exam. Patient to schedule mammogram (slip given to patient). Follow up with primary for general health screening/ labs/colon oscopy (up to date currently, due again 2018). Return for annual in one year or sooner prn. Dyspareunia [id number] Lik bibi due to atrophic vaginitis, will check Affirm to r/o infection. Reviewed options of Osphena, vaginal estrogen. Patient planning to continue lubricants , vaginal moisturize rs and would like to try vaginal estrogen. Risks vs benefits reviewed. Will rx Vagifem to pharmacy, Q HS x 2 weeks, then 2x weekly. Family his tory of neoplasm of breast [id number] Reviewed MyRisk testing with patient, declines currently but will consider. Does wish to meet with breast surgeon to review risk reduction strategies given family history, contact informatio n given for Dr. Lane. [id number] TIMA CORRAL DO G[address] [place] [address] 10/09/2016 09:19:07 10/09/2016 11:32:58 Gynecologic examination 81847049 Z01.419 Patient NOT SEEN today as provider called to L&D for delivery. Annual exam reschedule d. Screening mammography 24 583411 Z12.31 Screening for osteoporosis 704573416 Z13.902 [id number] TIMA CORRAL DO WHG5 [address] [place] [address] 12/18/2016 08:19:32 12/19/2016 08:56:00 Gynecologic examination 56672511 Z01.419 Normal pelvic exam. Check pap with HPV. Reviewed self breast exam. Patient to schedule mammogram (slip given to patient). Advised to follow up with primary for general health screening/ labs/colon oscopy. Return for annual in one year or sooner prn. Family his tory of neoplasm of breast 121937492 Z84.89 Reviewed MyRisk testing and option of meeting with breast surgeon to discuss risk reduction strategies with patient given family history; patient declines but will consider. Stressed importance of SBE and screening mammogram. Dyspareunia 37462242 N94 .10 Discomfort with intercours e due to atrophic vaginitis. No issues currently, patient planning to continue lubricants , vaginal moisturize rs. Tried vaginal estrogen last year with good results but has too much going on right now to continue. [id number] TIMA CORRAL DO WHG[address] [place] [address] 12/25/2017 10:53:22 12/26/2017 13:05:20 Gynecologic examination 96025061 Z01.419 Normal pelvic exam. Pap deferred (pap/HPV neg 2016). Reviewed self breast exam. Patient to schedule mammogram, DEXA (slip given to patient). Discussed calcium, vit D. Advised to follow up with primary for general health screening/ labs. Up to date with colonoscop y currently, due again 2018 or 2019, patient to confirm. Return for annual in one year or sooner prn. Screening mammography 24 187300 Z12.31 Screening for osteoporosis 419954998 Z13.820 Dyspareunia 45891956 N94 .10 Discomfort with intercours e due to atrophic vaginitis. No issues currently, patient planning to continue lubricants , vaginal moisturize rs. Also desires restart of vaginal estradiol, has used this in the past with good results. Risks/bene fits reviewed. Family his tory of breast cancer 776529389 Z80.3 Mother with breast CA in her 40s. Reviewed MyRisk testing and option of meeting with breast surgeon to discuss risk reduction strategies with patient given family history; patient declines at this time but will consider. Stressed importance of SBE and screening mammogram. [id number] TIMA CORRAL DO WHG5 [address] [place] [address] 09/18/2019 10:26:22 09/18/2019 15:59:40 Screening mammography 37916056 Z12.31 Screening mammogram ordered. Menopausal syndrome 1237 03070 N95.9 DEXA ordered today (SKEIN DYER since late 40s), patient to check with insurance to make sure this is covered. Gynecologi c examination 96085895 Z01.419 Normal pelvic exam. Pap deferred (pap/HPV neg 2017). Reviewed self breast exam. Patient to schedule mammogram, DEXA (slip given to patient). Discussed calcium, vit D. Advised to follow up with primary for general health screening/ labs. Due for colonoscop y, contact info for Antionette King (GI) given at visit today. Return for annual in one year or sooner prn. Urinary tr act infectious disease 03898589 N39.0 + blood, + protein with urine dip. Patient asymptomat ic. UAC&S sent today. Family his tory of breast cancer 614206386 Z80.3 Mother with breast CA in her 40s. Reviewed MyRisk testing and option of meeting with breast surgeon to discuss risk reduction strategies with patient given family history; patient declines at this time but will consider. Stressed importance of SBE and screening mammogram. Dyspareunia 87083235 N94 .10 Discomfort with intercours e due to atrophic vaginitis. No issues currently, patient planning to continue lubricants , vaginal moisturize rs. Declines restart of vaginal estrogen at this time. Health Concerns Section Related Observation LastModified by Organization Detai ls LastModified Time None Recorded Concern Status LastModified by Organization Details LastModified Time None Recorded Advance Directives Directive None Recorded Payers Encounter Date Sequence Insurance Name Policy Number Policy Woody Covered Member ID Woody Member ID Guarantor Name 05/20/2015 1 [employer] [employer] - PERSONAL CHOICE (PPO) [id number] Corby Belle [id number] Corby Belle 10/09/2016 1 [employer] [employer] - PERSONAL CHOICE (PPO) [id number] Corby Belle [id number] Corby Belle 12/18/2016 1 [employer]: [employer] - PERSONAL CHOICE (PPO) [id number] Corby Belle [id number] Corby Khan Barbar 12/25/2017 1 [employer]: [place] [employer] - PERSONAL CHOICE (PPO) [id number] Corby Belle [id number] Corby Belle 09/18/2019 1 [place]) [id number] Paul Estrada [id number] Corby Belle Notes Date Note Type Note Provider Name and Address Organization Details Recorded Time 12/18/2016 text/html [facility] Annual GYNReported bypatient.History: no gynecologic complaints; no change in interval history Menstrual cycle:postmenopaus al Urinary symptoms:No hematuria; No incontinence Vulva:No genital lesion Vagina:Normal vaginal discharge Breast:No breast pain; No breast lump; No nipple discharge Sexual complaints:No sexual complaints; Normal libido;Pain during intercourse Menopausal symptoms:Hot flashes;Inadequacy of lubrication of vaginal mucosa Psychological symptoms:No depression; No anxiety; No PMDD Preventive measures:Encourage self breast examination; Encourage regular exercise; Followed with Q3 year pap smear and high risk HPV typing; Needs to schedule mammogram; Up to date on colonoscopy screeningNotes:Pat ient here for annual, doing well. Denies PMB, pelvic pain, vaginal discharge, bloating. Last colonoscopy 2008, not due again until 2019. No changes to family or medical history. TIMA CORRAL, DO [address] [facility], 3[address] Floor, [place], [address], [place] [facility] 12/18/2016 15:22:38 12/25/2017 text/html [facility] Annual GYNReported bypatient.History: no gynecologic complaints; no change in interval history Menstrual cycle:postmenopaus al Urinary symptoms:No hematuria; No incontinence Vulva:No genital lesion Vagina:Normal vaginal discharge Breast:No breast pain; No breast lump; No nipple discharge Sexual activity:No sexual complaints; No pain during intercourse; Normal libido Menopausal symptoms:Inadequac y of lubrication of vaginal mucosa Psychological symptoms:No depression; No anxiety; No PMDD Preventive measures:Encourage self breast examination; Encourage regular exercise; Followed with Q3 year pap smear and high risk HPV typing; Needs to schedule mammogram; Up to date on colonoscopy screening; DEXA needs to scheduleNotes:Usha ent here for annual, doing well. Denies PMB, pelvic pain, vaginal discharge, bloating. Last colonoscopy 2008, not due again until 2019. Found to have elevated JAMES this past year as part of workup for tingling noted in her extremities, currently undergoing evaluation with both rheumatology and neurology, no clear diagnosis at this time. TIMA CORRAL DO [address], [address], [facility] 12/25/2017 13:00:17 09/18/2019 text/html [facility] Annual GYNReported bypatient.History: no gynecologic complaints; no change in interval history Menstrual cycle:postmenopaus al Urinary symptoms:No hematuria; No incontinence Vulva:No genital lesion Vagina:Normal vaginal discharge Breast:No breast pain; No breast lump; No nipple discharge Sexual activity:No sexual complaints; No pain during intercourse; Normal libido Menopausal symptoms:Inadequac y of lubrication of vaginal mucosa Psychological symptoms:No depression; No anxiety; No PMDD Preventive measures:Encourage self breast examination; Encourage regular exercise; Followed with Q3 year pap smear and high risk HPV typing; Needs to schedule mammogram; Needs to schedule colonoscopy; DEXA needs to scheduleNotes:Usha ent here for annual, doing well. Denies PMB, pelvic pain, vaginal discharge, bloating. Last colonoscopy 2008, due again this year. Found to have elevated JAMES in 2017 as part of workup for tingling noted in her extremities, patient reports all workup to date has been negative. TIMA CORRAL DO 175 [facility], [address] [place] [address], [address], [facility] 09/18/2019 11:28:25 OBGyn Episode No OBEpisode recorded.
--- OUTSIDE RECORDS SUMMARY | 2025-04-05 14:20 | XMS_ITS ---
Author Name [facility] Organization Unknown Care Team Organization Name Specialty Phone Email Start Date End Go Kuo [facility], [facility] 10/17/2023
--- OUTSIDE RECORDS SUMMARY | 2025-04-05 14:20 | XMS_ITS | Clinical Summary ---
Author Organization [facility] Address [address] [place] [address] Care Team Providers Care Ear Pull Machine Operator Name Role Phone Juan Ramon Nath MD Primary Care Provider Unafidel ilable Allergies Active Allergy Reactions Criticality Noted Date Comments Aspirin 07/02/2017 Champagne 07/02/2017 Msg 07/02/2017 Penicillins 07/02/2017 Medications Medication Sig Dispensed Refills Start Date End Date Status sertraline (ZOLOFT) 100 MG tablet Take 100 mg by mouth daily. One and a half tab 0 Active cetirizine (ZYRTEC) 10 MG tablet Take 10 mg by mouth daily. 0 Active Active Problems Problem Noted Date Diagnosed Date Bruxism, sleep-related 07/02/2017 Depressive disorder 12/18/2016 Resolved Problems Problem Noted Date Diagnosed Date Resolved Date Idiopathic progressive polyneuropathy 07/02/2017 03/14/2018 New daily persistent headache 07/02/2017 03/14/2018 Chronic fatigue 07/02/2017 03/14/2018 Family History Medical History Relation Name Comments Glaucoma Father Heart attack Father Hypertension Father Breast cancer Mother mets Other Sister brain tumor Relation Name Status Comments Father Mother Sister Social History Tobacco Use Types Packs/Day Years Used Date Smoking Tobacco: Never Alcohol Use Standard Drinks/Week Comments Yes 0 (1 standard drink = 0.6 oz pur e alcohol) Sex and Gender Information Value Date Recorded Sex Assigned at Not on file Gender Identity Not on file Sexual Orientation Not on file Last Filed Vital Signs Vital Sign Reading Time Taken Comments Blood Pressure 122/76 10/08/2017 8:34 AM EST Pulse 88 10/08/2017 8:34 AM EST Temperature - - Respiratory Rate 20 10/08/2017 8:34 AM EST Oxygen Saturation - - Inhaled Oxygen Concentration - - Weight 68.9 kg (152 lb) 07/02/2017 11:06 AM EDT Height 158.8 cm (5' 2.5 ) 07/02/2017 11:06 AM ED T Body Mass Index 27.36 07/02/2017 11:06 AM EDT Plan of Treatment Health Maintenance Due Date Last Done Comments Hepatitis C Screening 1965 COVID-19 Vaccine (#1) 1963 Depression Screening 1975 Preventative Health Evaluation 1981 DTap / Tdap / Td (1 - Tdap) 1982 Cervical Cancer Screening (P ap Smear) 1984 Colon Cancer Screening (Colonoscopy) 2008 Breast Cancer Screening (Mammogram) 2013 Shingrix-Zoster Vaccine (1 of 2) 2013 Influenza Vaccine (#1) 2024 08/17/2022 RSV Adult > 60+ Yrs or Pregn ant (1 - 1-dose 75+ series) 2038 Hepatitis B Vaccines Aged Out No long er eligible based on patient's age to complete this topic Pneumococcal Vaccine Aged Out No long er eligible based on patient's age to complete this topic RSV Ped < 20 months Aged Out No longe r eligible based on patient's age to complete this topic Care Teams Ear Pull Machine Operator Relationship Specialty Start Date End Date Juan Ramon Nath MD PCP - General Family Medicine 07/02/17
== END 2025-04-05 14:08 | disposition home or self-care (01) ==
LOC: HO.HMCFM 13:00
PROVIDERS: PCP Nurse Practitioner Family; Visit Provider Nurse Practitioner Family
DX: Z00.00 Encounter for general adult medical examination without abnormal findings (principal); J45.909 Unspecified asthma, uncomplicated; F41.9 Anxiety disorder, unspecified; F32.A Depression, unspecified

== ENCOUNTER → 2025-04-05 12:59 | Outpatient (BNVA) | payer OTHER, SELFPAY | PROVIDERS: PCP Nurse Practitioner Family; Visit Provider Nurse Practitioner Family | DX: Z00.00 Encounter for general adult medical examination without abnormal findings (principal); J45.909 Unspecified asthma, uncomplicated; F41.9 Anxiety disorder, unspecified; F32.A Depression, unspecified; Z79.899 Other long term (current) drug therapy | CPT/HCPCS: 96127; 96160 ==

== ENCOUNTER 2025-04-27 07:32 | Outpatient (REF) | payer OTHER, SELFPAY ==
[2025-04-27 11:13] LABS: Basophils Absolute Auto 0.1 X10*3/uL (0.0-0.2); Basophils Percent Auto 1.1 % (0-2); Eosinophils Absolute Auto 1.9 X10*3/uL (0.0-0.4); Eosinophils Percent Auto 20.7 % (0-4); Hemoglobin 14.4 g/dl (12.0-16.0); Imm Gran Abs Auto 0.02 X10*3/uL (0.00-0.03); Imm Gran Pct Auto 0.2 % (0.0-0.4); Lymphocytes Absolute Auto 2.4 X10*3/uL (1.2-4.9); Lymphocytes Percent Auto 26.8 % (20-40); MANUAL DIFF FLAG SCAN; Mean Corpuscular HGB Conc 32.7 g/dl (31.0-35.0); Mean Corpuscular Hemoglobin 28.4 pg (27.0-33.0); Mean Corpuscular Volume 86.8 fL (80.0-98.0); Mean Platelet Volume 11.6 fL (9.4-12.3); Monocytes Absolute Auto 0.5 X10*3/uL (0.1-1.2); Monocytes Percent Auto 5.3 % (2-11); Neutrophils Absolute Auto 4.2 x10*3/uL (2.0-8.3); Neutrophils Percent Auto 45.9 % (45-73); Platelet Count 252 X10*3/uL (160-400); Red Blood Count 5.07 X10*6/uL (4.20-5.50); Red Cell Distribution Width 14.6 % (11.0-16.0); SCAN SMEAR FLAG 1; White Blood Count 9.1 X10*3/uL (4.8-10.8)
[2025-04-27 11:17] LABS: Appearance Urine Turbid; Color Urine Yellow; Glucose Urine UA Negative (Negative); Leukocyte Esterase Urine Negative (Negative); Nitrite Urine Negative (Negative); Specific Gravity - Urine >= 1.030 (1.005-1.025); Urine Blood Negative (Negative); Urine Ketones Negative (Negative); Urine Protein Negative (Neg-Trace)
[2025-04-27 11:55] LABS: Alanine Aminotransferase 71 U/L (0-31); Albumin Level 4.5 g/dL (3.5-5.0); Alkaline Phosphatase 101 U/L (39-117); Anion Gap 12 (12-20); Aspartate Amino Transferase 33 U/L (5-31); Bilirubin Total 0.6 mg/dL (0.0-1.0); Blood Urea Nitrogen 23 mg/dL (9-16); Calcium 9.5 mg/dL (8.4-10.2); Carbon Dioxide 23 mmol/L (22-29); Chloride 109 mmol/L (96-108); Cholesterol 232 mg/dL (<200); Estimated Glomerular Filt Rate > 60; Glucose Fasting 101 mg/dL (60-99); HDL Cholesterol 48 mg/dL (>40); LDL Cholesterol Calculated 156 mg/dL (<100); Sodium 140 mmol/L (135-145); TSH reflex Free T4 2.33 uIU/mL (0.32-4.0); Total Protein 7.5 g/dL (6.5-8.0); Triglycerides 143 mg/dL (<150); Vitamin D 25-OH Total 108.1 ng/mL (>30)
[2025-04-27 11:58] LABS: Creatinine Urine 101.09 mg/dL; Microalbum/Creatinine Ratio Ur 10.8 ug/mg cr (<30)
[2025-04-27 12:57] LABS: SLIDE REVIEW VERIFIED
== END 2025-04-27 07:33 | disposition home or self-care (01) ==
LOC: HO.WFDLDS 07:32
PROVIDERS: Visit Provider Nurse Practitioner Family
DX: Z00.00 Encounter for general adult medical examination without abnormal findings (principal); Z13.6 Encounter for screening for cardiovascular disorders
CPT/HCPCS: 36415; 80053; 80061; 81003; 82043; 82306; 82570; 84443; 85025

== ENCOUNTER 2025-04-30 12:15 | Outpatient (AMB) | payer OTHER, SELFPAY ==
--- NOTE | 2025-04-30 12:11 | A.OFFPC_ITS ---
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: No Is last menstrual period known: No Post menopausal: No Patient : No Allergies sloan Allergy (Severe, Verified 04/30/25 12:12) Anaphylaxis MSG Allergy (Severe, Uncoded 04/05/25 13:34) Anaphylaxis Tobacco use date assessed: 04/30/25 Dental Screening Dental Screen Date: 04/30/25 Did you have a dental visit in the last 12 months?: Yes Did you have a dental problem in the last 6 months where you did not have access to dental care?: No Was dental information given to patient?: Patient has dentist HPI HPI Comments History of Present Illness Details 59-year-old [facility] results. She admits to taking her medications as prescribed without adverse reactions. She notes that she was recently seen at [facility] shortly after her last visit visit here and was treated for bronchitis. Her symptoms have completely resolved. She requests that her b operator referral changed from [facility] to [facility]. She offers no complaints and denies acute symptoms at this time. [facility] Medical History (Updated 04/30/25 @ 12:40 by Molly Zelaya CNP) Depression Kidney stones Asthma Surgical History History of ankle surgery History of shoulder surgery Family History (Updated 04/05/25 @ 13:30 by Bekah Tinsley MA) Father Alcohol abuse High blood pressure High cholesterol Cardiovascular disease Mother Breast cancer Sister Asthma Social History (Updated 04/05/25 @ 13:20 by Bekah Tinsley MA) Housing: House Patient Tobacco Use Status: Never used Tobacco e-Cigarette/Vaping Use: Never Used Second Hand Smoke Exposure: No Substance Use Type: Marijuana Patient : No service: No Current occupational status: employed 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 Omid Westbrook, Khushbu Ku, Donaldo Suazo and colleagues, with an educational junior from [employer]. Review of Systems Const Details: Denies chills, Denies fatigue, Denies fever(s), Denies headache(s) and Denies weakness Cardiac Denies chest pain, Denies claudication, Denies leg edema, Denies lightheadedness, Denies palpitations, Denies dyspnea, Denies dyspnea on exertion, Denies orthopnea and Denies other (Loss of consciousness) Resp Denies cough, Denies excessive phlegm production, Denies dyspnea, Denies dyspnea on exertion, Denies snoring and Denies wheezing Physical exam (Primary Care) Tobacco/Smoking Status: Tobacco use Status Tobacco use date assessed 04/30/25 04/30/25 12:13 Patient Tobacco Use Status Never used Tobacco 04/30/25 12:13 e-Cigarette/Vaping Use Never Used 04/30/25 12:13 Thrive Assessment: Date of Thrive Assessment Date Thrive assessed 04/05/25 04/30/25 12:13 Const Other: Patient is alert and oriented x3 Telehealth Telehealth Telehealth Platform: Telephone Location of provider rendering services: practice address Location of patient: address on file Patient Identification confirmed using: Name, : Yes Telehealth method: voice only Patient verbally consented to treatment: Yes Patient verbally consented to billing insurance company: Yes Patient informed of any privacy concerns related to visit: Yes Coding Level of Care Code Tele Est Pt Level 3 (60106) Diagnoses Elevated fasting glucose R73.01 Transaminitis R74.01 Hypercholesterolemia E78.00 Pap smear for cervical cancer screening Z12.4 Time Spent (min) 20 Assessment & Plan Assessment & Plan (1) Elevated fasting glucose: Code(s): R73.01 - Impaired fasting glucose Category: Medical Plan: Recent fasting glucose is slightly elevated, 101. Healthy diet and routine exercise encouraged. Fast for 10-12 hours, may drink water, and perform fasting blood work 2-3 days before next visit. Follow-up in 2 months for elevated fasting glucose, transaminitis, hyper cholesterolemia, anxiety, depression, or sooner with symptoms or concerns. Verbalized understanding and agreed with treatment plan. (2) Transaminitis: Code(s): R74.01 - Elevation of levels of liver transaminase levels Category: Medical Plan: Recent AST and ALT levels a slightly elevated, 33 and 71 respectively. Likely fatty liver disease due to poor diet. Healthy diet, including low-fat, and routine exercise encouraged. Will recheck lipid panel in 2 months. Verbalized understanding and agreed with the plan. (3) Hypercholesterolemia: Code(s): E78.00 - Pure hypercholesterolemia, unspecified Category: Medical Plan: Recent total cholesterol and LDL levels are slightly elevated, 232 and 156 r espectively. Advised to limit foods high in saturated fat and avoid foods high in trans fat. Routine exercise encouraged. Will recheck lipid panel level in 2 months. Verbalized understanding and agreed with the plan. (4) Pap smear for cervical cancer screening: Code(s): Z12.4 - Encounter for screening for malignant neoplasm of cervix Category: Medical Plan: b operator referral change from [facility] per patient's request. 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
--- OUTSIDE RECORDS SUMMARY | 2025-04-30 12:49 | XMS_ITS | Clinical Summary ---
Author Organization [facility] Address [address] [place] [address] Care Team Providers Care Field Human Resources Manager Name Role Phone Juan Ramon Nath MD [...] age to complete this topic Care Teams Field Human Resources Manager Relationship Specialty Start Date End Date Juan Ramon Nath MD PCP - General Family Medicine 07/02/17
== END 2025-04-30 13:08 | disposition home or self-care (01) ==
LOC: HO.HMCFM 12:15
PROVIDERS: PCP Nurse Practitioner Family; Visit Provider Nurse Practitioner Family
DX: R73.01 Impaired fasting glucose (principal); R74.01 Elevation of levels of liver transaminase levels; E78.00 Pure hypercholesterolemia, unspecified

== ENCOUNTER → 2025-04-30 12:15 | Outpatient (BNVA) | payer OTHER, SELFPAY | PROVIDERS: PCP Nurse Practitioner Family; Visit Provider Nurse Practitioner Family | DX: Z13.89 Encounter for screening for other disorder (principal) ==

== ENCOUNTER 2025-07-15 07:43 | Outpatient (REF) | payer OTHER, SELFPAY ==
[2025-07-15 11:47] LABS: Alanine Aminotransferase 43 U/L (0-31); Albumin Level 4.5 g/dL (3.5-5.0); Alkaline Phosphatase 78 U/L (39-117); Aspartate Amino Transferase 35 U/L (5-31); Cholesterol 190 mg/dL (<200); HDL Cholesterol 41 mg/dL (>40); Total Protein 7.0 g/dL (6.5-8.0); Triglycerides 140 mg/dL (<150)
== END 2025-07-15 07:44 | disposition home or self-care (01) ==
LOC: HO.WFDLDS 07:43
PROVIDERS: Visit Provider Nurse Practitioner Family
DX: R73.01 Impaired fasting glucose (principal); R74.01 Elevation of levels of liver transaminase levels; E78.00 Pure hypercholesterolemia, unspecified
CPT/HCPCS: 36415; 80061; 80076; 82947

== ENCOUNTER 2025-07-20 14:05 | Outpatient (AMB) | payer OTHER, SELFPAY ==
--- NOTE | 2025-07-20 14:01 | A.OFFPC_ITS ---
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 Is last menstrual period known: No Post menopausal: No Patient : No Allergies sloan Allergy (Severe, Verified 07/20/25 14:01) Anaphylaxis MSG Allergy (Severe, Uncoded 04/05/25 13:34) Anaphylaxis Tobacco use date assessed: 07/20/25 Dental Screening Dental Screen Date: 07/20/25 Did you have a dental visit in the last 12 months?: Yes Did you have a dental problem in the last 6 months where you did not have access to dental care?: No Was dental information given to patient?: Patient has dentist HPI HPI Comments History of Present Illness Details 60-year-old female presents for a [facility] visit for review of recent lab results. She admits to taking her medications as prescribed without adverse reactions. She notes that she has been making healthy lifestyle choices. She offers no complaints and denies acute symptoms at this time. [facility] Medical History (Updated 04/30/25 @ 12:40 by Molly Zelaya CNP) Depression Kidney stones Asthma Surgical History History of ankle surgery History of shoulder surgery Family History (Updated 04/05/25 @ 13:30 by Bekah Tinsley MA) Father Alcohol abuse High blood pressure High cholesterol Cardiovascular disease Mother Breast cancer Sister Asthma Social History (Updated 04/05/25 @ 13:20 by Bekah Tinsley MA) Housing: House Patient Tobacco Use Status: Never used Tobacco e-Cigarette/Vaping Use: Never Used Second Hand Smoke Exposure: No Substance Use Type: Marijuana Patient : No service: No Current occupational status: employed 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 Current occupational exposures/hazards: No Cognitive needs: No Hearing needs: No Vision needs: Yes Questionnaire Thrive Questionnaire Date Thrive assessed: 04/05/25 I am a: Patient What is your living situation today?: I have a steady place to live Within the past 12 months, did the food you bought not last and you didn't have the money to get more?: Never true Within the past 12 months, did you worry whether your food would run out before you got money to buy more?: Never true Do you have trouble paying for medicines?: No Do you have trouble getting transportation to medical appointments?: No Do you have trouble paying your heating and electricity bill?: No Do you have trouble taking care of your child, family member or friend?: No Do you have trouble with day-to-day activities such as bathing, preparing meals, shopping, managing finances, etc.?: No Are you currently unemployed and looking for a job?: No Are you interested in more education?: No Please select the resources that you would like help with: None Currently or been in a relationship where the following occur: No concerns reported THRIVE Score: 0 AUDIT C Alcohol Use Questionnaire (AUDIT-C) 2. How many drinks containing alcohol do you have on a typical day when you are drinking?: 1 or 2 3. How often do you have six or more drinks on one occasion?: Never Total Score: 0 ISMAEL-7 AMB Questionnaire ISMAEL-7 Date ISMAEL - 7 assessed: 04/05/25 Source: Developed by Drs. Omid Westbrook, Khushbu Ku, Donaldo Suazo and colleagues, with an educational junior from [employer]. Review of Systems Const Details: Denies chills, Denies fatigue, Denies fever(s), Denies headache(s) and Denies weakness Cardiac Denies chest pain, Denies claudication, Denies leg edema, Denies lightheadedness, Denies palpitations, Denies dyspnea, Denies dyspnea on exertion, Denies orthopnea and Denies other (Loss of consciousness) Resp Denies cough, Denies excessive phlegm production, Denies dyspnea, Denies dyspnea on exertion, Denies snoring and Denies wheezing Physical exam (Primary Care) Tobacco/Smoking Status: Tobacco use Status Tobacco use date assessed 07/20/25 07/20/25 14:02 Patient Tobacco Use Status Never used Tobacco 07/20/25 14:02 e-Cigarette/Vaping Use Never Used 07/20/25 14:02 Thrive Assessment: Date of Thrive Assessment Date Thrive assessed 04/05/25 07/20/25 14:02 Currently or been in a relationship where the following occur: No concerns reported Const Other: Patient is alert and oriented x3 Telehealth Telehealth Telehealth Platform: Telephone Location of provider rendering services: practice address Location of patient: address on file Patient Identification confirmed using: Name, : Yes Telehealth method: voice only Patient verbally consented to treatment: Yes Patient verbally consented to billing insurance company: Yes Patient informed of any privacy concerns related to visit: Yes Coding Level of Care Code Tele Est Pt Level 3 (67257) Diagnoses Elevated fasting glucose R73.01 Hypercholesterolemia E78.00 Transaminitis R74.01 Time Spent (min) 15 Assessment & Plan Assessment & Plan (1) Elevated fasting glucose: Code(s): R73.01 - Impaired fasting glucose Category: Medical Plan: Recent fasting glucose is slightly elevated, 105, previous level was 101. Healthy diet and routine exercise encouraged. Will A1c and make changes as needed. Verbalized understanding and agreed with the plan. (2) Hypercholesterolemia: Code(s): E78.00 - Pure hypercholesterolemia, unspecified Category: Medical Plan: Recent LDL level is 121, previous low was 156. Total cholesterol improved to 190 form 232. Triglycerides and HDL levels are normal. Advised to limit foods high in saturated fat and avoid foods high in trans fat. Routine exercise encouraged. Fast for 10-12 hours, may drink water, and perform lipid panel blood work 2-3 days before next visit. Follow-up in 2 months for hypercholesterolemia, elevated fasting glucose, anxiety, and depression. Return sooner with symptoms or concerns. Verbalized understanding and agreed with the plan. (3) Transaminitis: Code(s): R74.01 - Elevation of levels of liver transaminase levels Category: Medical Plan: Recent AST and ALT levels are slightly elevated, 35 and 43 respectively, previous levels were 33 and 71 respectively. Likely fatty liver deposit. Asymptomatic. Healthy diet/weight management encouraged. Will recheck liver panel in 2 months. Verbalized understanding and agreed with the plan. Orders: Orders Lipid Panel 2 Months E78.00 - Pure hypercholesterolemia, unspecified Hemoglobin A1c Today R73.01 - Impaired fasting glucose Liver Panel 2 Months R74.01 - Elevation of levels of liver transaminase levels
--- OUTSIDE RECORDS SUMMARY | 2025-07-20 15:25 | XMS_ITS ---
Author Name [facility] Organization Unknown Care Team Organization Name Specialty Phone Email Start Date End Go Kuo [facility], [facility] 10/17/2023
--- OUTSIDE RECORDS SUMMARY | 2025-07-20 15:25 | XMS_ITS | Clinical Summary ---
Author Organization [facility] Address [address] [place] [address] Care Team Providers Care Professor Computer Science Name Role Phone Juan Ramon Nath MD Primary Care Provider [phone] Social History Tobacco Use Types Packs/Day Years [...] Vaccine ( - 2023-2 5 season) 2024 Depression Screening 12/02/2024 Influenza Vaccine (#1) 2025 RSV Immunization Adult Patie nts (1 [...] age to complete this topic Care Teams Professor Computer Science Relationship Specialty Start Date End Date Juan Ramon Nath MD [address] [place] [address] PCP - General Family Medicine 07/02/17
--- OUTSIDE RECORDS SUMMARY | 2025-07-20 15:25 | XMS_ITS | Clinical Summary ---
Author Organization [facility] Address [address] [place] [address] Care Team Providers Care Room Service Waiter Name Role Phone Juan Ramon Nath MD [...] (1 of 2) 2013 Influenza Vaccine (#1) 2025 08/17/2022 RSV Adult > 60+ Yrs or [...] age to complete this topic Care Teams Room Service Waiter Relationship Specialty Start Date End Date Juan Ramon Nath MD PCP - General Family Medicine 07/02/17
== END 2025-07-20 14:56 | disposition home or self-care (01) ==
LOC: HO.HMCFM 14:05
PROVIDERS: PCP Nurse Practitioner Family; Visit Provider Nurse Practitioner Family
DX: R73.01 Impaired fasting glucose (principal); E78.00 Pure hypercholesterolemia, unspecified; R74.01 Elevation of levels of liver transaminase levels